=== PATIENT | male | born 1995 | race Caucasian/White ===

== ENCOUNTER 2019-04-05 21:51 | Emergency (ER) | payer OTHER, BC ==
[2019-04-05] MEDS ORDERED: IBUPROFEN 600 MG TABLET (FP) PO ONE ×2 (21:55→22:07)
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
[2019-04-05 22:36] VITALS: BP 139/91; PULSE 71; TEMP 98.5; BMI 32.3
== END 2019-04-05 23:05 | disposition home or self-care (01) ==
LOC: JERFT 21:51
DX: S00.03XA Contusion of scalp, initial encounter (principal); M79.642 Pain in left hand; V43.52XA Car driver injured in collision with other type car in traffic accident, initial encounter; Y93.89 Activity, other specified; Y92.410 Unspecified street and highway as the place of occurrence of the external cause
CPT/HCPCS: 73130-TC-LT-FY; 99283-25